=== PATIENT | female | born 1980 | race American Indian/Alaskan Native ===

== ENCOUNTER 2021-04-05 06:57 | Day surgery (SDC) | payer MEDICAID ==
[2021-04-05] MEDS ORDERED: SODIUM CHLORIDE 0.9% 1000 ML 1,000 ML IV SCH (07:00)
[2021-04-05] MEDS ORDERED: propofoL 200 MG/20 ML VIAL IV ONE (08:38)
[2021-04-05] MEDS ORDERED: MIDAZOLAM 2 MG/2 ML INJ ONE (08:38)
[2021-04-05] MEDS ORDERED: LIDOCAINE MPF (2%) 20 MG/1 ML VIAL 5 ML ONE (08:38)
--- NOTE | 2021-04-05 09:06 | Discharge Summary ---
Providers - Providers Date of Admission: 04/05/2021 Date of discharge: 04/05/21 Attending physician: DAVONTE AGUILAR MD Primary care physician: [facility] Hospitalization Reason for admission: pre-op planning egd Condition: Good Procedures: egd with bx Hospital course: Pt presented for a pre-op EGD as part of planning for up coming bariatric surgery. Procedure was uneventful and pt recovered well and was discharged to home. Disposition: 01 HOME / SELF CARE / HOMELESS Final Discharge Diagnosis (Prints w/discharge instructions): gerd, morbid obesity Core Measure Documentation - Palliative Care Palliative Care/ Comfort Measures: Not Applicable - Core Measures Any of the following diagnoses?: none Exam - Physical Exam Narrative exam: unchanged from pre-op Plan Activity: advance as tolerated Diet: low carbohydrate Follow up with: PRIMARY [facility]EM[facility] [Primary Care Provider] - 7 Days
--- NOTE | 2021-04-05 09:07 | Operative Report ---
Operative Report Operative Report: DATE: 04/05/2021 SURGERY: Upper endoscopy. SURGEON: Cate Sprague M.D. PROCEDURE: EGD with biopsy PRE OP DX: morbid obesity, GERD POST OP DX: morbid obesity, GERD TYPE OF ANESTHESIA: MAC. ESTIMATED BLOOD LOSS: None. COMPLICATIONS: None. SPECIMENS REMOVED: antral biopsy FINDINGS: mild antral gastritis INDICATIONS:INDICATION FOR PROCEDURE: Patient is a 40-year-old female with a long history of morbid obesity. She is planned to have a weight loss procedure and is here for preoperative planning EGD. PROCEDURE DETAILS: After consent was reviewed, patient was taken back to the operating room where patient was placed in the left lateral decubitus position and a bite block was placed in the mouth. After a time-out was called, MAC anesthesia was initiated. I then passed the endoscope into her oropharynx, into her esophagus, visualized the entire esophagus, which was all within normal limits. Z-line was noted to about 40 cm from incisors. I then visualized the stomach and the first portion of the duodenum and there were no abnormalities I could clearly visualize except for antral gastritis. A cold forceps biopsy of the antrum was taken and will be sent to pathology to evaluate for H.pylori. I then retroflexed the scope in the stomach and visualized the hiatus and I could see no significant hiatal hernia. I then desufflated the stomach and removed the endoscope. Patient tolerated procedure well and was transferred to recovery room in good and stable condition.
--- NOTE | 2021-04-05 09:14 | Anesthesia Consultation ---
Anesthesia Consult and Med Hx Date of service: 04/05/21 - Airway Anesthetic Teeth Evaluation: Good ROM Head & Neck: Adequate Mental/Hyoid Distance: Adequate Mallampati Class: Class II Intubation Access Assessment: Good - Pulmonary Exam CTA: Yes - Cardiac Exam Cardiac Exam: No Murmur - Pre-Operative Health Status ASA Pre-Surgery Classification: ASA3 Proposed Anesthetic Plan: MAC - Pulmonary Hx Sleep Apnea: Yes - Cardiovascular System Hx Hypertension: Yes - Endocrine Hx Non-Insulin Dependent Diabetes: Yes - Other Systems Hx Obesity: Yes
--- NOTE | 2021-04-05 09:15 | Anesthesia Day of Surgery ---
Anesthesia Day of Surgery - Day of Surgery Patient Examined: Yes Patient H&P Reviewed: Yes Patient is NPO: Yes
--- NOTE | 2021-04-05 12:19 | Post Anesthesia Evaluation ---
- Post Anesthesia Evaluation Patient Participated: Yes Airway Patent: Yes Stable Respiratory Function: Yes Nausea/Vomiting: No Temp > 96.8F: Yes Pain Manageable: Yes Adequeate Hydration: Yes Anesthesia Complications: No Block Receding Appropriately: Not Applicable Patient on Ventilator: No
[2021-04-05 17:28] VITALS: BP 128/69
== END 2021-04-05 06:58 | disposition home or self-care (01) ==
LOC: GIO 06:57
PROVIDERS: ATTEND Surgery
DX: K21.9 Gastro-esophageal reflux disease without esophagitis (principal); K29.60 Other gastritis without bleeding; I10 Essential (primary) hypertension; E11.9 Type 2 diabetes mellitus without complications; E66.01 Morbid (severe) obesity due to excess calories; Z79.899 Other long term (current) drug therapy; Z98.890 Other specified postprocedural states
CPT/HCPCS: 43239; 81025; 82962; 88305; 88342; J2250; J2704; J3490; J7030; J7120; Q0162

== ENCOUNTER 2021-05-10 10:29 | Outpatient (CLI) | payer MEDICAID ==
[2021-05-10 12:03] LABS: Basophils # (Auto) 0.2 K/mm3 (0.0-0.1); Basophils % (Auto) 1.3 % (0.0-1.8); Eosinophils % (Auto) 0.3 % (0.0-4.3); Lymphocytes # (Auto) 3.5 K/mm3 (1.2-5.4); Lymphocytes % (Auto) 25.8 % (13.4-35.0); Mean Corpuscular HGB Conc 33 % (30-34); Mean Corpuscular Volume 88 fl (79-97); Monocytes # (Auto) 0.7 K/mm3 (0.0-0.8); Monocytes % (Auto) 5.1 % (0.0-7.3); Platelet Count 371 K/mm3 (140-440); Red Blood Count 5.11 M/mm3 (3.65-5.03)
--- NOTE | 2021-05-10 12:18 | Fluoroscopy Report ---
BARIUM SWALLOW Indication: MORBID OBESITY. Technique: Single and double contrast barium technique utilized to evaluate the esophagus. FINDINGS: To begin the exam, swallowing was evaluated in the lateral position under direct fluorosco py. Swallowing was normal. No mucosal irregularity, mass, mass effect, or critical stenosis. There were no abnormal tertiary c ontractions as seen with dysmotility. No gastroesophageal reflux. Additional findings: The patient had one episode of emesis during this exam due to the patient's disl fabian of the barium solution. IMPRESSION: Unremarkable exam. Fluoroscopic time: 1.2 minutes Number of fluoroscopic images: 25 Signer Name: Domenic Pryor Jr, MD Signed: 05/10/2021 12:14 PM Workstation Name: [id number]
[2021-05-10 12:47] LABS: % Iron Saturation 23.25 %; Alanine Aminotransferase 27 units/L (7-56); Albumin 4.5 g/dL (3.9-5); BUN/Creatinine Ratio 13; Blood Urea Nitrogen 10 mg/dL (7-17); Calcium 10.5 mg/dL (8.4-10.2); Chol/HDL Ratio 4.39 %; HDL Cholesterol 46 mg/dL (40-59); Hemolysis Index 2; Iron 83 ug/dL (37-170); LDL Cholesterol,Direct 140 mg/dL (50-130); Total Iron Binding Capacity 357 mcg/dL (250-450)
--- NOTE | 2021-05-10 13:17 | XRay Report ---
CHEST 2 VIEWS INDICATION: MORBID OBESITY. COMPARISON: none FINDINGS: Support devices: None. Heart: Within normal limits. Lungs/pleura: No acute air space or interstitial disease. No pleural abnormality or pneumothorax. Additional findings: None. IMPRESSION: Normal chest x-ray. Signer Name: Domenic Pryor Jr, MD Signed: 05/10/2021 1:12 PM Workstation Name: [id number]
== END 2021-05-10 10:30 | disposition home or self-care (01) ==
LOC: FLUORO 10:29
PROVIDERS: ATTEND Surgery
DX: Z01.812 Encounter for preprocedural laboratory examination (principal); Z13.1 Encounter for screening for diabetes mellitus; Z13.21 Encounter for screening for nutritional disorder; Z13.29 Encounter for screening for other suspected endocrine disorder; K30 Functional dyspepsia; E66.01 Morbid (severe) obesity due to excess calories; E55.9 Vitamin D deficiency, unspecified; R06.02 Shortness of breath; R06.00 Dyspnea, unspecified
CPT/HCPCS: 36415; 71046; 74220; 80053; 80061; 82306; 82607; 82728; 83036; 83550; 84443; 85025; 85730

== ENCOUNTER 2021-08-22 06:00 | Inpatient (IN) | payer MEDICAID ==
[~2021-08-22 06:00] MED LIST: ENOXAPARIN 40 MG/0.4 ML INJ SUB-Q NR; metroNIDAZOLE/NS 500 MG/100 ML 500 MG/100 ML BAG IV NR
[2021-08-22] MEDS ORDERED: LACTATED RINGERS 1,000 ML ONE ×2 (06:34→10:24)
[2021-08-22] MEDS ORDERED: SCOPOLAMINE TRANSDERMAL PATCH 72 HR TD ONE (06:34)
[2021-08-22] MEDS ORDERED: ACETAMINOPHEN IV 1,000 MG/100 ML BOTTLE IV ONE (06:35)
[2021-08-22] MEDS ORDERED: GABAPENTIN 500 MG/10 ML ORAL LIQD ONE (06:35)
[2021-08-22] MEDS ORDERED: LIDOCAINE 1%/EPINEPHRINE 1:100,000 VIAL (20 ML) INFILTRATI ONE ×2 (07:03→08:41)
[2021-08-22] MEDS ORDERED: BUPIVACAINE/PF (0.25%) 2.5 MG/ML 30 ML VIAL INFILTRATI ONE ×2 (07:03→08:41)
[2021-08-22] MEDS ORDERED: WATER FOR IRRIG STERILE 250 ML BOTTLE IR ONE (07:16)
[2021-08-22] MEDS ORDERED: LIDOCAINE MPF (2%) 20 MG/1 ML VIAL 5 ML ONE (07:22)
[2021-08-22] MEDS ORDERED: SODIUM CHLORIDE P/F VIAL 10 ML 10 ML ONE (07:22)
[2021-08-22] MEDS ORDERED: ROCURONIUM 50 MG/5 ML INJ IV ONE (07:22)
[2021-08-22] MEDS ORDERED: KETAMINE/STERILE WATER 50 MG/ML SYRINGE ONE (07:22)
[2021-08-22] MEDS ORDERED: MAGNESIUM SULFATE 2 GM/50 ML BAG IV ONE (07:24)
[2021-08-22] MEDS ORDERED: SUGAMMADEX SODIUM 200 MG/2 ML VIAL IV ONE (07:25)
[2021-08-22] MEDS ORDERED: MIDAZOLAM 2 MG/2 ML INJ IV NR (07:31)
[2021-08-22] MEDS ORDERED: ONDANSETRON 4 MG/2 ML INJ IV PRN ×2 (07:38→11:30)
[2021-08-22] MEDS ORDERED: HYDROmorphone 1 MG/1 ML INJ IV PRN ×2 (07:38→08:00)
--- NOTE | 2021-08-22 07:39 | Anesthesia Day of Surgery ---
Anesthesia Day of Surgery - Day of Surgery Patient Examined: Yes Patient H&P Reviewed: Yes Patient is NPO: Yes Beta Blockers: Yes Cardiac Clearance: Yes Pulmonary Clearance: Yes
--- NOTE | 2021-08-22 07:40 | Anesthesia Consultation ---
Anesthesia Consult and Med Hx Date of service: 08/22/21 - Airway Anesthetic Teeth Evaluation: Good ROM Head & Neck: Adequate Mental/Hyoid Distance: Adequate Mallampati Class: Class II Intubation Access Assessment: Good - Pre-Operative Health Status ASA Pre-Surgery Classification: ASA3 Proposed Anesthetic Plan: General - Pulmonary Hx Smoking: Yes (Former) Hx Sleep Apnea: Yes - Cardiovascular System Hx Hypertension: Yes Hx Heart Attack/AMI: Yes (AGE 34 ) - Central Nervous System Hx Back Pain: Yes (Sciatica) Hx Psychiatric Problems: Yes - Gastrointestinal Hx Gastroesophageal Reflux Disease: Yes - Endocrine Hx Non-Insulin Dependent Diabetes: Yes - Hematic Hx Sickle Cell Disease: No - Other Systems Hx Alcohol Use: Yes (Occas) Hx Cancer: No Hx Obesity: Yes
[2021-08-22] MEDS ORDERED: ACETAMINOPHEN IV 1,000 MG/100 ML BOTTLE IV NR (08:00)
[2021-08-22] MEDS ORDERED: methOCARBAMOL 1,000 MG in SODIUM CHLORIDE 0.9% 250ML 250 ML IV ONE (08:00)
[2021-08-22] MEDS ORDERED: WATER FOR IRRIG STERILE 1,500 ML BOTTLE IR ONE (08:41)
[2021-08-22] MEDS ORDERED: SODIUM CHLORIDE 0.9% IRRIG SOLN 2000 ML IR ONE (08:41)
[2021-08-22] MEDS ORDERED: SCOPOLAMINE TRANSDERMAL PATCH 72 HR TD SCH (10:00)
[2021-08-22] MEDS ORDERED: KETOROLAC 30 MG/1 ML INJ ONE (10:24)
[2021-08-22] MEDS ORDERED: ONDANSETRON 4 MG/2 ML INJ ONE (10:24)
[2021-08-22] MEDS ORDERED: dexAMETHasone 20 MG/5 ML VIAL ONE (10:24)
[2021-08-22] MEDS ORDERED: DEXTROSE 50% IN WATER (25GM) 50 ML SYRINGE IV PRN (11:01)
--- NOTE | 2021-08-22 11:08 | Operative Report ---
Operative Report Operative Report: DATE OF PROCEDURE: 08/22/2021 SURGEON: Cate Sprague M.D. CAFE LEAD: Chinedu Wallace CSA MD PREOPERATIVE DIAGNOSIS: Morbid obesity. POSTOPERATIVE DIAGNOSES: Morbid obesity PROCEDURES PERFORMED: 1. Laparoscopic gastric bypass. ANESTHESIA: General endotracheal tube intubation, TAP block SPECIMENS: None. ESTIMATED BLOOD LOSS: Less than 20 mL. FINDINGS: Normal anatomy. COMPLICATIONS: None. INDICATION: Ms. Pink is a 41-year-old female with history of morbid obesity and DM, HTN. who is here for bariatric surgery for weight loss. She signed informed consent and expressed understanding of risks and benefits. DESCRIPTION OF PROCEDURE: Patient was brought to the OR suite, laid in supine position. Bilateral lower extremity SCDs were placed. General anesthesia was induced via successful endotracheal tube intubation. Patient's abdomen was prepped and draped in sterile fashion. A veress needle was used to insuflate the abdomen to a pressure of 18 mmHg in the left subcostal region. Using Optiview technique, a 5- mm trocar was placed into the abdominal cavity under direct vision just superior and to the left of the umbilicus. There was noted to be no gross injury to any intraabdominal structures. 12 mm in the right mid abdomen mid clavicular line and three 5-mm trocars in the right upper quadrant, epigastric areas were placed under direct visualization. At this time, the ligament of Treitz identified and followed down approximately 75 cm and the jejunum was transected. The distal segment of jejunum was then traced for approximately 100 cm and a stable [id number] jejunojejunostomy was performed. The common enterotomy was closed with 2 firings of the endoscopic stapler. The mesenteric defect was closed with running Surgidac suture. This anastomosis was found to be patent without kink, obstruction or bleeding. At this time, the patient was placed in steep reverse Trendelenburg position. A liver retractor was placed through the epigastric port to elevate the left lateral lobe of the liver. A small gastric pouch was formed with serial firings of the blue load on a laparoscopic stapler. The Lon limb was then brought in an antegastric antecolic fashion and secured with 2 stay sutures to the gastric pouch. After this, the enterotomies were made with Harmonic scalpel, and a [id number] stapled gastrojejunostomy was performed with a mechanical stapler. After this, a 2-layer running closure using absorbable V-lock suture were done, the first being mucosal approximation prior to completion of the first layer. Then I passed and an EGD scope beyond the anastomosis to act as a stent. The first layer was completed, the second was then performed. After this, the EGD was retracted slightly. A bowel clamp was placed in a proximal Lon limb. The anastomosis was submerged under saline. Via intraluminal EGD insufflation, there was noted be no bubbles in the saline indicating an airtight anastomosis. There was noted to be no obstruction or bleeding intraluminally in the pouch or the anastomosis. At this time, the scope was removed. The saline was aspirated. Vistaseal was placed over the anastomosis. All trocars were removed under direct visualization and the abdomen was then desufflated. A TAP block was performed using a total of 60 mL 0.25% Marcaine along bilateral mid axillary lines starting at the subcostal margin at the level of the umbilicus. The 12mm trocar site was closed using POD and a Phi Chencho ason device for fear that after surgery it become incarcerated. The skin incisions were closed with 4-0 Monocryl followed by Dermabond dressings. Patient was awoken and taken to recovery in stable condition. All counts were correct.
[2021-08-22] MEDS ORDERED: HYDROcodone/Acetaminophen 7.5-325MG-15ML ORAL LIQD PO PRN (11:30)
[2021-08-22] MEDS ORDERED: hydrALAZINE 20 MG/1 ML INJ IV PRN (11:30)
[2021-08-22] MEDS ORDERED: METOCLOPRAMIDE 10 MG/2 ML INJ IV PRN (11:30)
[2021-08-22] MEDS ORDERED: MORPHINE 2 MG/1 ML INJ IV PRN (11:30)
[2021-08-22] MEDS: LACTATED RINGERS 1,000 ML IV SCH ×2 (12:24→16:13)
[2021-08-22] MEDS: PANTOPRAZOLE 40 MG INJ IV SCH (12:31)
[2021-08-22] MEDS: KETOROLAC 30 MG/1 ML INJ IV SCH ×2 (12:31→18:50)
[2021-08-22] MEDS: HYDROmorphone 1 MG/1 ML INJ IV PRN ×3 (12:32→21:19)
[2021-08-22] MEDS: SIMETHICONE 80 MG CHEW TAB PO PRN ×2 (12:43→18:50)
[2021-08-22] MEDS ORDERED: ACETAMINOPHEN IV 1,000 MG/100 ML BOTTLE IV SCH (14:00)
[2021-08-22] MEDS: ACETAMINOPHEN IV 1,000 MG/100 ML BOTTLE IV SCH ×2 (16:12→21:21)
[2021-08-22] MEDS: INSULIN REGULAR, HUMAN 100 UNITS/1 ML SUB-Q SCH (17:46)
[2021-08-22] MEDS: ceFAZolin/NS 1 GM/50 ML 1 GM/50 ML BAG IV SCH (18:03)
[2021-08-22] MEDS: metroNIDAZOLE/NS 500 MG/100 ML 500 MG/100 ML BAG IV SCH (18:51)
[2021-08-23] MEDS: INSULIN REGULAR, HUMAN 100 UNITS/1 ML SUB-Q SCH ×4 (00:57→17:41)
[2021-08-23] MEDS: KETOROLAC 30 MG/1 ML INJ IV SCH ×4 (00:57→17:29)
[2021-08-23] MEDS: LACTATED RINGERS 1,000 ML IV SCH ×2 (01:00→09:14)
[2021-08-23] MEDS: metroNIDAZOLE/NS 500 MG/100 ML 500 MG/100 ML BAG IV SCH ×2 (01:01→08:59)
[2021-08-23] MEDS: ceFAZolin/NS 1 GM/50 ML 1 GM/50 ML BAG IV SCH (01:01)
[2021-08-23] MEDS: ACETAMINOPHEN IV 1,000 MG/100 ML BOTTLE IV SCH ×2 (03:16→09:00)
[2021-08-23 05:48] LABS: Basophils % (Auto) 0.2 % (0.0-1.8); Hematocrit 36.1 % (30.3-42.9); Hemoglobin 11.9 gm/dl (10.1-14.3); Mean Corpuscular HGB Conc 33 % (30-34); Mean Corpuscular Volume 88 fl (79-97); Monocytes # (Auto) 0.8 K/mm3 (0.0-0.8); Monocytes % (Auto) 5.2 % (0.0-7.3); Platelet Count 328 K/mm3 (140-440); Red Blood Count 4.09 M/mm3 (3.65-5.03); Red Cell Distribution Width 13.2 % (13.2-15.2)
--- OUTSIDE RECORDS SUMMARY | 2021-08-23 05:59 | External Medical Summary ---
:1980 Author Organization [facility], [facility] Address [address] [place] [address] Care Team Providers Name Role Phone Darcie Unavailable [phone] PROBLEMS Type Condition ICD9-CM [id number] Onset Condition W/U Status Risk SNOM ED Notes Code Code Dates Status Code Problem Morbid E66.2 Active confirmed 561905686 (severe) obesity with alveolar hypoventilati on Problem Morbid E66.01 Active confirmed 941227087 (severe) obesity due to excess calories Problem Type 2 E11.9 Active confirmed 073804851 diabetes mellitus without complications Problem Dietary Z71.3 Active confirmed 848490624 counseling and surveillance Problem Essential I10 Active confirmed 78012284 (primary) hypertension Problem Gastro-esopha K21.9 Active confirmed 443152 005 geal reflux disease without esophagitis Problem Sleep apnea, G47.30 Active confirmed 9867938 6 unspecified ALLERGIES No Known Allergies ENCOUNTERS from 1980 to 2021-08-19 Encounter Location Date Provider Diagnosis [facility] [address] Aug, Karleena Darcie Morbi d (severe) obesity [address] due to e xcess calories of [facility], E66.01 ; [place] [address] diabetes melli tus without complic ations E11.9 ; Essenti al (primary) hyper tension I10 ; Gastro-es ophageal reflux disease without esophagitis K21 .9 and Sleep apnea, unspecified G47 .30 IMMUNIZATIONS No Information SOCIAL HISTORY Sex Assigned At : Social History Observation Description Sex Assigned At Unknown REASON FOR REFERRAL from 1980 to 2021-08-19 Reason GASTRIC BYPASS Diagnosis 1 Morbid (severe) obesity due to excess calories (E66.01) Diagnosis 2 Sleep apnea, unspecified (G4 7.30) Diagnosis 3 Gastro-esophageal reflux dis ease without esophagitis (K21.9) Diagnosis 4 Type 2 diabetes mellitus wit hout complications (E11.9) Diagnosis 5 Essential (primary) hyperten mali (I10) Diagnosis 6 Morbid (severe) obesity with alveolar hypoventilation (E66.2) Diagnosis 7 Pain in right knee (M25.561) Diagnosis 8 Low back pain, unspecified ( M54.50) Referral Organization [facility] Referring Provider First Name Cate Referring Provider Last Name Darcie Referring Provider Specialty Surgery Referred Provider [facility]ly [facility], - Referral Priority Routine VITAL SIGNS Height 66 in Aug, Weight 293 lbs Aug, Temperature 97.8 degrees Fahrenheit Aug, BMI 47.29 kg/m2 Aug, MEDICATIONS Medication SIG (Take, Route, Notes Start Date End Date Status Frequency, Duration) Ozempic (1 MG/DOSE) 2 as directed Ac tive MG/1.5ML Subcutaneous hydroCHLOROthiazide 25 MG 1 tablet in the Active morning Orally Once a day for 30 day(s) traMADol HCl 50 MG 1 tablet as needed Not-Taking Orally Once a day Losartan Potassium 100 MG 1 tablet Orally Once Active a day for 30 day(s) Cyclobenzaprine HCl 10 MG 1 tablet at bedtime Active as needed Orally Once a day for 30 day(s) tiZANidine HCl Not-Taking Ondansetron 4 MG 1-2 tablet on the Aug, Active tongue and allow to dissolve Orally q 46 hours prn nausea Meloxicam 7.5 MG 1 tablet Orally Once Active a day for 30 day(s) PriLOSEC Active Gabapentin 300 MG 1 capsule Orally A ctive Once a day for 30 day(s) Xanax 0.5 MG 1 tablet Orally Not-Pete ing Twice a day metFORMIN HCl 500 MG 1 tablet with a meal BID Active Orally Once a day for 30 day(s) Spironolactone 25 MG 1 tablet Orally for Active 30 day(s) HYDROcodone-Acetaminophen 1 tablet as needed Active 5-325 MG Orally every 6 hrs Omeprazole 40 MG 1 capsule 30 minutes Aug, Active before morning meal Orally Once a day for 30 day(s) Wellbutrin Not-Taking Metoprolol Succinate 100 MG 1 capsule Orally Active Once a day for 30 day(s) PROCEDURES No Information RESULTS No Results REASON FOR VISIT PreOp Bypass MEDICAL (GENERAL) HISTORY Type Description Date Medical History htn Medical History gerd Medical History back pain Medical History anxiety Medical History knee pain Medical History sleep apnea Medical History diabetes Medical History depression Surgical History breast reduction 2000 Surgical History gynecological diagnositic laparoscopy 26 05 Goals Section No Information Health Concerns No Information MEDICAL EQUIPMENT No Information MENTAL STATUS No Information FUNCTIONAL STATUS No Information ASSESSMENTS Encounter Date Diagnosis Assessment Notes Treatment Notes Treatm ent Clinical Notes Aug, Morbid (severe) An hour was spen t with patient reinforcing diet, vitamin requirements and lifestyle education, A quiz was administered and reviewed to verify understanding of intended procedure and post operative care. obesity due to Consent forms w ere reviewed with patient and signed answering all questions, Pre-operative labs were ordered. excess calories (ICD-10 - E66.01) Aug, Type 2 diabetes Should resolve o r greatly improve with weight loss after bariatric surgery. mellitus without complications (ICD-10 - E11.9) Aug, Essential (primary) Should resol ve or greatly improve with weight loss after bariatric surgery hypertension (ICD-10 - I10) Aug, Gastro-esophageal Should improve with marcela ght loss surgery. reflux disease without esophagitis (ICD-10 - K21.9) Aug, Sleep apnea, Continue use of CPAP machine, should resolve or greatly improve after weight loss surgery, and will titrate CPAP machine as tolerated. unspecified (ICD-10 - G47.30) PLAN OF TREATMENT Medication Medication Name Sig Start Date Stop Date Ondansetron 4 MG 1-2 tablet on the tongue and allow to Aug, 022 dissolve Orally q 46 hours prn nausea Omeprazole 40 MG 1 capsule 30 minutes before morning meal Aug Orally Once a day for 30 day(s) Treatment Notes Assessment Notes Clinical Notes Morbid (severe) obesity due to An hour was spent with patient reinforcing diet, vitamin requirements and lifestyle education, A quiz was administered and reviewed to verify understanding of intended procedure and post operative care. excess calories Consent forms were reviewed with patient and signed answering all questions, Pre-operative labs were ordered. Type 2 diabetes mellitus without Should resolve or gre atly improve with weight loss after bariatric surgery. complications Essential (primary) hypertension Should resolve or gre atly improve with weight loss after bariatric surgery Gastro-esophageal reflux disease Should improve with weight loss surgery. without esophagitis Sleep apnea, unspecified Continue use of CPAP machine , should resolve or greatly improve after weight loss surgery, and will titrate CPAP machine as tolerated. Referrals Referral Date Details GASTRIC BYPASS Next Appt Details at surgery Reason: Provider Name:Cate Sprague, 2021-08-05 8 10:00:00 AM, [address] [facility], [place], [place], [phone], Insurance Providers Payer Payer Payer Insured Patient Coverage Coverage Subscriber [place] Name Address Phone Name Relationship Start End Date Number Nu mber to Insured Date [facility] [phone] SCOTT CHAN self [id number] [facility] [address] [address] [address] [place] [phone]
[2021-08-23 06:06] LABS: Alanine Aminotransferase 21 units/L (7-56); Albumin 3.4 g/dL (3.9-5); BUN/Creatinine Ratio 14; Blood Urea Nitrogen 11 mg/dL (7-17); Calcium 8.7 mg/dL (8.4-10.2); Hemolysis Index 3
[2021-08-23] MEDS: PANTOPRAZOLE 40 MG INJ IV SCH (08:59)
[2021-08-23] MEDS ORDERED: NON-FORMULARY EACH (Losartan 100 MG) PO SCH (10:00)
[2021-08-23] MEDS ORDERED: LOSARTAN 50 MG TAB PO SCH (10:00)
[2021-08-23] MEDS ORDERED: GABAPENTIN 300 MG CAP PO SCH (10:00)
[2021-08-23] MEDS ORDERED: NON-FORMULARY EACH (Gabapentin 300 MG) PO SCH (10:00)
[2021-08-23] MEDS ORDERED: METOPROLOL TARTRATE 100 MG TAB PO SCH (10:00)
[2021-08-23] MEDS ORDERED: ENOXAPARIN 40 MG/0.4 ML INJ SUB-Q SCH (10:00)
[2021-08-23 11:42] VITALS: BP 120/69
--- NOTE | 2021-08-23 16:51 | Discharge Summary ---
Providers - Providers Date of Admission: 08/22/21 06:00 Date of discharge: 08/23/21 Attending physician: DAVONTE AGUILAR MD 08/22/21 11:01 Physical Therapy Evaluation and Treat [CONS] Routine Comment: Reason For Exam: Postop bariatric surgery Hospitalization Reason for admission: s/p bariatric surgery Condition: Good Procedures: s/p gastric bypass Hospital course: Pt was admitted after an uneventful lap gastric bypass for the treatment of morbid obesity. She remained afebrile and stable. She recovered well and was tolerating liquids, ambulating iindependtly, with adequate pain control. She was discharged to home on postoperative day #1 showing no gross clinical signs of leak or bleeding. Patient to follow-up in the office within 2 weeks. Disposition: 01 HOME / SELF CARE / HOMELESS Final Discharge Diagnosis (Prints w/discharge instructions): morbid obesity, dm, [place] Core Measure Documentation - Palliative Care Palliative Care/ Comfort Measures: Not Applicable - Core Measures Any of the following diagnoses?: none Exam - Constitutional Vitals: Temp Pulse Resp BP Pulse Ox 98.1 F 71 18 120/69 98 08/23/21 11:39 08/23/21 12:21 08/23/21 12:21 08/23/21 11:39 08/23/21 12:21 General appearance: Present: no acute distress, obese - Respiratory Respiratory effort: normal - Cardiovascular Heart Sounds: Present: S1 & S2 - Extremities Extremities: no ischemia - Abdominal General gastrointestinal: Present: soft, other (incisions c/d/i, appropriatley tender to palpation) Plan Activity: advance as tolerated Diet: clear liquids Wound: open to air, keep clean and dry [facility] - [facility] Days
== END 2021-08-23 18:07 | disposition home or self-care (01) | DRG 621 ==
LOC: 3A 06:00 → 4A 11:04
PROVIDERS: ADMIT Surgery; ATTEND Surgery
PROC: 0D164ZA Bypass Stomach to Jejunum, Percutaneous Endoscopic Approach (ICD-10-PCS; principal; 2021-08-22)
PROC: 0DJ08ZZ Inspection of Upper Intestinal Tract, Via Natural or Artificial Opening Endoscopic (ICD-10-PCS; 2021-08-22)
PROC: 5A09357 Assistance with Respiratory Ventilation, Less than 24 Consecutive Hours, Continuous Positive Airway Pressure (ICD-10-PCS; 2021-08-22)
DX: E66.01 Morbid (severe) obesity due to excess calories (principal); Z68.42 Body mass index [BMI] 45.0-49.9, adult; I10 Essential (primary) hypertension; I25.2 Old myocardial infarction; K21.9 Gastro-esophageal reflux disease without esophagitis; E11.9 Type 2 diabetes mellitus without complications; Z88.6 Allergy status to analgesic agent; Z87.891 Personal history of nicotine dependence
CPT/HCPCS: 36415; 80053; 81025; 82962; 85025; 99406; G0378; J3490; J7121; J7517; C9113; J0131; J0690; J1100; J1170; J1650; J1885; J2250; J2405; J2704; J3475; J7120